=== PATIENT | male | born 1990 | race Caucasian/White ===

== ENCOUNTER 2017-08-10 12:15 | Emergency (ER) | payer MEDICAID ==
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
== END 2017-08-10 14:20 | disposition home or self-care (01) ==
LOC: ER 12:15
DX: J02.8 Acute pharyngitis due to other specified organisms (principal); Z88.1 Allergy status to other antibiotic agents; Z88.2 Allergy status to sulfonamides; Z88.8 Allergy status to other drugs, medicaments and biological substances
CPT/HCPCS: 87070-90; 87081-90; Z7502